=== PATIENT | male | born 1945 | race Caucasian/White ===

== ENCOUNTER 2016-10-16 13:48 | Day surgery (SDC) | payer MEDICARE, OTHER ==
[2016-10-12 12:32] LABS: HEMATOCRIT 49.8 % (40.0-51.0); HEMOGLOBIN 18.2 g/dL (13.6-17.8)
[2016-10-12 12:41] LABS: BUN (BLOOD UREA NITROGEN) 9 MG/DL (6-23); CALCIUM, SERUM 8.8 MG/DL (8.5-10.4); CHLORIDE, SERUM 101 MMOL/L (96-112); CO2 (CARBON DIOXIDE) 32 MMOL/L (24-34); CREATININE 0.86 MG/DL (0.70-1.30); GFR AFRICAN AMERICAN 103 ML/MIN (>=60); GFR NON AFRICAN AMERICAN 88 ML/MIN (>=60); GLUCOSE, SERUM 152 MG/DL (60-99); PARTIAL THROMBO TIME 26.5 SEC (22.5-37.2); POTASSIUM, SERUM 3.7 MMOL/L (3.5-5.3); PROTIME (NOT ORD) 13.2 SEC (12.0-14.5); SODIUM, SERUM 136 MMOL/L (135-148)
[~2016-10-16] VITALS: Ht 180.3 cm; Wt 93.0 kg
[~2016-10-16 13:48] MED LIST: NORV10 PO; PCET PO; PROZAC40 MG PO; VALIUM10 MG PO; ZESTRIL10 MG PO
== END 2016-10-16 19:52 | disposition home or self-care (01) ==
LOC: ENRESERVDT → ENRESERVTM → CANRESERV → ENRESERV → SDC 13:48
PROVIDERS: Otolaryngology
PROC: 0CB90ZZ Excision of Left Parotid Gland, Open Approach (ICD-10-PCS; principal; 2016-10-16 15:30)
DX: D11.0 Benign neoplasm of parotid gland (principal); I10 Essential (primary) hypertension; F41.9 Anxiety disorder, unspecified; J44.9 Chronic obstructive pulmonary disease, unspecified; Z88.8 Allergy status to other drugs, medicaments and biological substances; Z79.899 Other long term (current) drug therapy; F17.210 Nicotine dependence, cigarettes, uncomplicated; Z90.49 Acquired absence of other specified parts of digestive tract; Z98.890 Other specified postprocedural states
CPT/HCPCS: 71020; 80048; 85014; 85018; 85610; 85730; 88307; 93005; A9270-GY; J0690; J2250; J2270; J2405; J2710; J3010